=== PATIENT | male | born 1995 | race American Indian/Alaskan Native ===

== ENCOUNTER 2019-08-08 12:57 | Emergency (ER) | payer BC ==
[2019-08-08 13:05] VITALS: BP 115/62
--- NOTE | 2019-08-08 13:08 | Emergency Department Report ---
Chief Complaint: Urogenital-Male Stated Complaint: STD EXPOSURE Time Seen by Provider: 08/08/19 13:03 - HPI History of Present Illness: 24-year-old male that presents with STD check up. Denies any symptoms. - Exam Physical Exam: no penile discharge. no pain. no urinary symptoms. no back pains. MSE screening note: Focused history and physical exam performed. Due to findings the following was ordered: ED Disposition for MSE Clinical Impression: Possible exposure to STD Disposition: - MED SCREENING EXAM-CONT Additional Instructions: Follow-up with the referrals that you have been provided in 3-5 days or if symptoms worsen and continue return to emergency room as soon as possible.
--- NOTE | 2019-08-08 14:36 | Emergency Department Report ---
ED Male HPI - General Chief complaint: Urogenital-Male Stated complaint: STD EXPOSURE Time Seen by Provider: 08/08/19 13:03 Source: patient Mode of arrival: Ambulatory Limitations: No Limitations - History of Present Illness Initial comments: Patient is 24 years old male with no significant past medical history. Patient presented to the ER asking for STD tests mainly cla. Patient stated that he has an exposure to chlamydia few days ago. Patient stated that his girlfriend told him that she had immediate. Patient currently denying any sy mptoms. No penile discharge no dysuria or hematuria. Complaint: other - Related Data Allergies Allergy/AdvReac Type Severity Reaction Status Date / Time No Known Allergies Allergy Unverified 08/08/19 13:05 ED Review of Systems ROS: Stated complaint: STD EXPOSURE Other details as noted in HPI Comment: All other systems reviewed and negative Constitutional: denies: chills, fever Respiratory: denies: cough, shortness of breath, SOB with exertion Cardiovascular: denies: chest pain, palpitations Gastrointestinal: denies: abdominal pain, nausea Genitourinary: denies: urgency, dysuria, frequency, hematuria, discharge, testicular pain, testicular mass ED Past Medical Hx - Past Medical History Previous Medical History?: No - Surgical History Past Surgical History?: No - Social History Smoking Status: Never Smoker Substance Use Type: None ED Physical Exam - General Limitations: No Limitations General appearance: alert, in no apparent distress - Head Head exam: Present: atraumatic, normocephalic, normal inspection - Eye Eye exam: Present: normal appearance, PERRL - ENT ENT exam: Present: normal exam, normal orophraynx, mucous membranes moist - Respiratory Respiratory exam: Present: normal lung sounds bilaterally - Cardiovascular Cardiovascular Exam: Present: regular rate, normal rhythm, normal heart sounds - GI/Abdominal GI/Abdominal exam: Present: soft, normal bowel sounds. Absent: distended, tenderness, guarding, rebound, rigid - Extremities Exam Extremities exam: Present: normal inspection, normal capillary refill - Back Exam Back exam: Present: normal inspection. Absent: CVA tenderness (R), CVA tenderness (L) - Psychiatric Psychiatric exam: Present: normal mood - Skin Skin exam: Present: warm ED Course Vital Signs 08/08/19 13:04 Temperature 98.2 F Pulse Rate 63 Respiratory 18 Rate Blood Pressure 115/62 O2 Sat by Pulse 100 Oximetry ED Medical Decision Making - Medical Decision Making Patient is 24 years old male with no significant past medical history. Patient presented to the ER asking for STD tests mainly . Patient stated that he has an exposure to chlamydia few days ago. Patient stated that his girlfriend told him that she had immediate. Patient currently denying any symptoms. No penile discharge no dysuria or hematuria. Urinalysis is negative for acute finding. GC and chlamydia test is pending. Patient advised to call or return back for the results. Patient discharged in a stable condition. Critical care attestation.: If time is entered above; I have spent that time in minutes in the direct care of this critically ill patient, excluding procedure time. ED Disposition Clinical Impression: Possible exposure to STD Disposition: DC-01 TO HOME OR SELFCARE Is pt being admited?: No Condition: Stable Instructions: Safe Sex (ED) Additional Instructions: Follow-up with the referrals that you have been provided in 3-5 days or if symptoms worsen and continue return to emergency room as soon as possible. Referrals: PRIMARY CARE [Primary Care Provider] - 3-5 Days
[2019-08-08 16:54] LABS: Bilirubin,Urine NEG (Negative); Blood,Urine NEG (Negative); Color,Urine Yellow (Yellow); Mucus,Urine FEW /HPF; Protein,Urine <15 mg/dL mg/dL (Negative); Urobilinogen,Urine < 2.0 mg/dL (<2.0); WBC,Urine < 1.0 /HPF (0.0-6.0)
== END 2019-08-08 17:23 | disposition home or self-care (01) ==
LOC: ED 12:57
DX: Z20.2 Contact with and (suspected) exposure to infections with a predominantly sexual mode of transmission (principal)
CPT/HCPCS: 81001; 87591